=== PATIENT | female | born 1960 | race Caucasian/White ===

== ENCOUNTER 2024-12-05 20:16 | Inpatient (IN) | payer BC ==
[~2024-12-05] VITALS: Ht 154.9 cm; Wt 62.6 kg
[2024-12-05] MEDS: FAMOTIDINE 20 MG/2 ML VIAL IV ONE (21:44)
[2024-12-05] MEDS: ONDANSETRON HCL INJ 2MG/ML 2ML 2 MG/ML VIAL IV ONE (21:44)
[2024-12-05] MEDS: KETOROLAC TROMETHAMINE 30 MG/ML VIAL IV ONE (21:45)
[2024-12-05] MEDS: LACTATED RINGER'S 1,000 ML INJ ONE (21:45)
[2024-12-05] MEDS ORDERED: ZOLPIDEM TARTRATE 5 MG TAB PO PRN (22:45)
[2024-12-05] MEDS ORDERED: DIPHENHYDRAMINE HCL INJ 50 MG/ML VIAL IV PRN (22:45)
[2024-12-05 23:45] VITALS: PULSE 110; RESP 19; TEMP 100.2
[2024-12-06] VITALS (9 sets, daily range): BP systolic 90–137; BP diastolic 51–77; PULSE 61–115; RESP 17–20; TEMP 97–99.5; O2SAT 96–100
[2024-12-06] MEDS: LACTATED RINGER'S 1,000 ML IV SCH (01:10)
[2024-12-06] MEDS ORDERED: ESTRADIOL0.5 MG PO (01:12)
[2024-12-06] MEDS ORDERED: NORTRIPTYLINE H25 MG PO (01:12)
[2024-12-06 05:19] LABS: BASOPHILS % 0.2 % (0.0-1.0); EOSINOPHILS % 0.1 % (0.0-6.0); LYMPHOCYTES % 2.6 % (18.0-39.1); MONOCYTES % 2.7 % (4.4-11.3); NEUTROPHILS % 93.8 % (38.7-80.0); RED CELL DISTRIBUTION WIDTH 14.3 % (11.7-14.4)
[2024-12-06 05:59] LABS: EST GLOMERULAR FILTRATION RATE 82.0 ML/MIN (>=60)
[2024-12-06] MEDS: ONDANSETRON HCL INJ 2MG/ML 2ML 2 MG/ML VIAL IV PRN (08:47)
[2024-12-06] MEDS: FAMOTIDINE 20 MG/2 ML VIAL IV SCH (08:47)
[2024-12-06 09:57] LABS: EOSINOPHILS % (MANUAL) 7 % (0-7); LYMPHOCYTES % (MANUAL) 1 % (19-48); MONOCYTES % (MANUAL) 8 % (3.4-9.0); NEUTROPHILS % (MANUAL) 83 % (40-74); PLATELET ESTIMATE ADEQUATE; PLATELET MORPHOLOGY COMMENT NORMAL; RBC MORPHOLOGY COMMENT NORMAL; REACTIVE LYMPHOCYTES 1
[2024-12-06] MEDS: HYDROCODONE/APAP 5MG-325MG TAB PO PRN (12:33)
[2024-12-06] MEDS: FAMOTIDINE 20 MG TAB PO SCH (17:02)
[2024-12-06] MEDS: NORTRIPTYLINE HCL 25 MG CAP PO SCH (20:24)
[2024-12-07] MEDS: METOCLOPRAMIDE HCL 10 MG/2ML VIAL IV SCH (00:04)
[2024-12-07 03:30] VITALS: BP 123/74; PULSE 99; RESP 18; TEMP 98; O2SAT 100
[2024-12-07 05:40] LABS: BASOPHILS % 0.4 % (0.0-1.0); EOSINOPHILS % 1.5 % (0.0-6.0); LYMPHOCYTES % 4.6 % (18.0-39.1); MONOCYTES % 2.5 % (4.4-11.3); NEUTROPHILS % 90.5 % (38.7-80.0); RED CELL DISTRIBUTION WIDTH 14.2 % (11.7-14.4)
[2024-12-07 06:12] LABS: EST GLOMERULAR FILTRATION RATE 99.0 ML/MIN (>=60)
[2024-12-07 08:47] VITALS: BP 133/80; PULSE 95; RESP 18; TEMP 98.5; O2SAT 97
[2024-12-07 09:14] LABS: BAND NEUTROPHILS % (MANUAL) 4 %; EOSINOPHILS % (MANUAL) 1 % (0-7); LYMPHOCYTES % (MANUAL) 3 % (19-48); MONOCYTES % (MANUAL) 2 % (3.4-9.0); NEUTROPHILS % (MANUAL) 89 % (40-74); PLATELET ESTIMATE ADEQUATE; PLATELET MORPHOLOGY COMMENT NORMAL; RBC MORPHOLOGY COMMENT NORMAL; REACTIVE LYMPHOCYTES 1
[2024-12-07] MEDS: LEVOTHYROXINE SODIUM 75 MCG TAB PO SCH (09:52)
[2024-12-07] MEDS: ESTRADIOL 1 MG TAB PO SCH (09:52)
[2024-12-07 10:00] VITALS: BP 133/80; PULSE 95; RESP 18; TEMP 98.5; O2SAT 97
[2024-12-07 12:20] LABS: HEPATITIS A ANTIBODY IGM (P) Negative (Negative)
[2024-12-07 12:22] LABS: HEPATITIS A VIRUS AB TOTAL Positive (Negative)
[2024-12-07] MEDS ORDERED: GADOBENATE DIMEGLUMINE 1 ML IV ONE (14:33)
[2024-12-07 19:41] VITALS: BP 132/78; PULSE 93; RESP 18; TEMP 98.1; O2SAT 96
[2024-12-07 21:08] VITALS: BP 132/78; PULSE 93; RESP 18; TEMP 98.1; O2SAT 96
[2024-12-07 23:45] VITALS: BP 131/79; PULSE 96; RESP 18; TEMP 99; O2SAT 100
[2024-12-08 03:31] VITALS: BP 125/72; PULSE 102; RESP 18; TEMP 99; O2SAT 98
[2024-12-08 06:48] LABS: BASOPHILS % 0.3 % (0.0-1.0); EOSINOPHILS % 4.3 % (0.0-6.0); LYMPHOCYTES % 13.1 % (18.0-39.1); MONOCYTES % 7.0 % (4.4-11.3); NEUTROPHILS % 74.5 % (38.7-80.0); RED CELL DISTRIBUTION WIDTH 13.9 % (11.7-14.4)
[2024-12-08 07:26] LABS: EST GLOMERULAR FILTRATION RATE 95 ML/MIN (>=60)
[2024-12-08 08:00] VITALS: BP 130/78; PULSE 95; RESP 19; TEMP 98.2; O2SAT 99
[2024-12-08] MEDS: POTASSIUM CHLORIDE 10MEQ EA PO ONE (08:34)
[2024-12-08 08:41] LABS: PHOSPHORUS 2.5 MG/DL (2.3-4.7)
[2024-12-08 09:39] VITALS: BP 130/78; PULSE 95; RESP 19; TEMP 98.2; O2SAT 99
[2024-12-10 19:25] LABS: ANTI-MITOCHONDRIAL AB SCREEN 30.1 Units (0.0-20.0); SMOOTH MUSCLE ANTIBODY(ACTIN) 4.0 Units (0-19)
[2024-12-13 06:57] LABS: HEPATITIS B CORE IGM (P) Negative; HEPATITIS B SURFACE AG (P) Negative
[2024-12-13 06:58] LABS: HEPATITIS A ANTIBODY IGM (P) Negative
== END 2024-12-08 11:15 | disposition home or self-care (01) | DRG 640 ==
LOC: FSED 20:26 → ERHOLD 22:34 → MED/SURG 12-06 01:53
PROVIDERS: ADMIT Internal Medicine; ATTEND Internal Medicine
DX: E86.1 Hypovolemia (principal); K72.00 Acute and subacute hepatic failure without coma; K52.9 Noninfective gastroenteritis and colitis, unspecified; R11.2 Nausea with vomiting, unspecified; I95.9 Hypotension, unspecified; E87.6 Hypokalemia; E86.0 Dehydration; R74.01 Elevation of levels of liver transaminase levels; R53.81 Other malaise; M35.00 Sjogren syndrome, unspecified; I73.00 Raynaud's syndrome without gangrene; Z98.84 Bariatric surgery status; Z90.49 Acquired absence of other specified parts of digestive tract; Z90.710 Acquired absence of both cervix and uterus
CPT/HCPCS: 36415; 74183; 76705; 80048; 80053; 80076; 81003; 83036; 83690; 83735; 84100; 84439; 84443; 85025; 86039; 86255; 86677; 86708; 99284; J1308; J1885; J2405; J2470; J2765